=== PATIENT | male | born 1975 | race Caucasian/White ===

== ENCOUNTER 2017-09-07 10:57 | Outpatient (CLI) | payer OTHER | END 2017-09-07 10:58 | disposition home or self-care (01) | LOC: SC 10:57 | PROVIDERS: ATTEND Internal Medicine Pulmonary Disease | DX: G47.10 Hypersomnia, unspecified (principal); G47.8 Other sleep disorders; R06.83 Snoring; R09.89 Other specified symptoms and signs involving the circulatory and respiratory systems | CPT/HCPCS: 99203; 99212 ==

== ENCOUNTER 2017-11-11 21:59 | Outpatient (CLI) | payer OTHER | END 2017-11-11 22:00 | disposition home or self-care (01) | LOC: SC 21:59 | PROVIDERS: ATTEND Internal Medicine Pulmonary Disease | DX: G47.33 Obstructive sleep apnea (adult) (pediatric) (principal); R00.1 Bradycardia, unspecified | CPT/HCPCS: 95810 ==

== ENCOUNTER 2017-12-14 09:54 | Outpatient (CLI) | payer OTHER | END 2017-12-14 09:55 | disposition home or self-care (01) | LOC: SC 09:54 | PROVIDERS: ATTEND Internal Medicine Pulmonary Disease | DX: G47.33 Obstructive sleep apnea (adult) (pediatric) (principal) | CPT/HCPCS: 99212; 99213 ==

== ENCOUNTER 2018-01-17 20:32 | Outpatient (CLI) | payer OTHER | END 2018-01-17 20:33 | disposition home or self-care (01) | LOC: SC 20:32 | PROVIDERS: ATTEND Internal Medicine Pulmonary Disease | DX: G47.33 Obstructive sleep apnea (adult) (pediatric) (principal); G47.61 Periodic limb movement disorder | CPT/HCPCS: 95811 ==

== ENCOUNTER 2018-02-11 15:20 | Outpatient (CLI) | payer OTHER | END 2018-02-11 15:21 | disposition home or self-care (01) | LOC: SC 15:20 | PROVIDERS: ATTEND Internal Medicine Pulmonary Disease | DX: G47.33 Obstructive sleep apnea (adult) (pediatric) (principal) | CPT/HCPCS: 99212; 99213 ==

== ENCOUNTER 2020-02-03 08:22 | Outpatient (CLI) | payer OTHER ==
--- NOTE | 2020-02-03 14:02 | MRI Report ---
PROCEDURE: Wrist RT W/O INDICATIONS: PAIN IN RIGHT WRIST TECHNIQUE: Noncontrast coronal proton density fast spin echo and T2 fast spin echo with fat saturation; coronal 3-D gradient echo, axial T1 spin echo and T2 fast spin echo with fat saturation, sagittal T1 spin ech o through the wrist. COMPARISON: None. FINDINGS: Image quality: There is mild motion artifact. Bones and cartilage: The carpal bones are normally aligned. No bone marrow contusions or fractures. No evidence for avascular necrosis. Overlying cartilage surfaces appear preserved. Carpal ligaments: The scapholunate ligament is attenuated in signal distally suggestive of mild part ial tearing. Lunotriquetral ligament demonstrates degenerative signal but appears grossly intact. In the absence of intra-articular contrast, the extrinsic carpal ligaments are not well identified. On sagittal images, the pisohamate ligament appears intact. Triangular fibrocartilage complex: The triangular fibrocartilage demonstrates mild degenerative sign al adjacent to its radial attachment. The adjacent meniscal also demonstrates mild degenerative signa l. The extensor carpi ulnaris tendon is normal in location and morphology. Tendons and soft tissues: The carpal tunnel structures appear normal, including the median nerve. T he ulnar nerve appears normal within Guyon?s canal. All six extensor tendon compartments demonstrate normal morphology, without pathologic tendon sheath fluid. There is a multiloculated ganglion cyst a long the volar aspect of the carpus adjacent to the junction of the trapezium and trapezoid and exten ding distally to the ulnar aspect of the first carpometacarpal joint. This measures approximately 2.4 cm in longitudinal dimension by approximately 0.7 x 0.4 cm. IMPRESSION: 1. Multiloculated ganglion cyst along the volar aspect of the carpus as described. 2. Suspected mild partial tearing of the dorsal component of the scapholunate ligament. Reviewed by: Mckinley Chavez MD on 02/03/2020 2:00 PM PDT Approved by: Mckinley Chavez MD on 02/03/2020 2:00 PM PDT Station ID: [id number]
== END 2020-02-03 08:23 | disposition home or self-care (01) ==
LOC: DI 08:22
PROVIDERS: ATTEND Nurse Practitioner Family
DX: M67.431 Ganglion, right wrist (principal)

== ENCOUNTER 2020-07-22 07:03 | Emergency (ER) | payer OTHER ==
--- NOTE | 2020-07-22 07:18 | ED Physician Documentation ---
PD HPI BACK PAIN - Stated complaint Stated Complaint: BACK/LEG PX - Chief complaint Chief Complaint: Back Pain - History obtained from History obtained from: Patient - History of Present Illness Timing - onset: How many days ago (4-5) Timing - duration: Days Timing - details: Gradual onset, Still present (more consistent the past day. No noted new injury. Had been doing usual activity and had worsening of back pain. Has had similar episodes in the past. Mild ongoing aching often, but severe episodes like current one are sporadic.), Waxing and waning Location: Lower, Left (radiating to left posterior thigh along hamstring area. No rash nor sores.) Quality: Pain, Sharp, Aching. No: Tearing Associated symptoms: No: Fever, Weakness, Numbness, Incontinent of urine Improves with: No: Rest, Meds (Rx Methocarbamol at ER in [place], where he was for work. Taking Ibuprofen intermittently with it.) Worsened by: Movement, Twisting, Palpation (left SI area) Contributing factors: Lifting Similar symptoms before: Diagnosis (recurrent low back pain. Had prior disc surgery 2013 and was good for several years. Occasional worse episodes lately.) Recently seen: Emergency Dept (4 days ago in [place] when it started getting worse.) Review of Systems Constitutional: denies: Fever, Chills Nose: denies: Rhinorrhea / runny nose, Congestion Throat: denies: Sore throat Cardiac: denies: Chest pain / pressure Respiratory: denies: Cough GI: denies: Abdominal Pain, Nausea, Vomiting Neurologic: reports: Numbness (he says sensation is decreased left posterior thi gh. No alteration around genitalia. Urinating okay.). denies: Focal weakness PD PAST MEDICAL HISTORY - Past Medical History Cardiovascular: None Respiratory: None Neuro: None Endocrine/Autoimmune: None Musculoskeletal: Chronic back pain (episodic) - Past Surgical History Past Surgical History: No - Present Medications Home Medications: Ambulatory Orders Medication Instructions Recorded Confirmed Dulaglutide [Trulicity] 0.75 mg SQ ONCE 07/22/20 07/22/20 Methocarbamol [Robaxin-750] 750 mg PO TID PRN 07/22/20 07/22/20 Oxycodone HCl/Acetaminophen 1 each PO Q4H PRN #20 tab 07/22/20 [Percocet 7.5-325 mg Tablet] Pantoprazole [Protonix] 40 mg PO DAILY 07/22/20 07/22/20 dexAMETHasone [Decadron] 4 mg PO DAILY #5 tab 07/22/20 metFORMIN [Glucophage] 500 mg PO BIDWM 07/22/20 07/22/20 tiZANidine [Zanaflex] 4 mg PO Q8H PRN #25 tab 07/22/20 - Allergies Allergies/Adverse Reactions: Allergies Allergy/AdvReac Type Severity Reaction Status Date / Time No Known Drug Allergies Allergy Verified 07/22/20 07:12 - Social History Does the pt smoke?: No Smoking Status: Never smoker Does the pt drink ETOH?: Yes Does the pt have substance abuse?: No - Immunizations Immunizations are current?: Yes PD ED PE NORMAL - Vitals Vital signs reviewed: Yes - General General: Alert and oriented X 3, Well developed/nourished, Other (appears in pain. Lying left side with knees up as most comfortable. ) - Respiratory Respiratory: Clear bilaterally - Abdomen Abdomen: Soft, Non tender - Male Male : Deferred - Rectal Rectal: Deferred, Other (normal sensation in gluteals and perirectal. ) - Back Back: No CVA TTP, No spinal TTP (not tender midline, but has focal tender area left SI area. No rash nor sores. ) - Derm Derm: Normal color, Warm and dry - Neuro Neuro: Alert and oriented X 3, No motor deficit, Normal speech, Other (decreased sensation left posterior thigh and lateral lower left leg. ) Eye Opening: Spontaneous Motor: Obeys Commands Verbal: Oriented GCS Score: 15 - Psych Psych: Normal mood Results - Vitals Vitals: Vital Signs - 24 hr 07/22/20 07/22/20 07:09 08:12 Temperature 36.0 C L Heart Rate 86 94 Respiratory 20 16 Rate Blood Pressure 156/92 H 131/80 H O2 Saturation 97 100 Oxygen O2 Source Room air PD MEDICAL DECISION MAKING - ED course Complexity details: re-evaluated patient (Feeling fairly well improved for now with IM meds and also local trigger point injection at upper left SI muscle area. ), considered differential (recurrent low back pain with some sciatic symptoms, otherwise no red flags. ), d/w patient Departure - Departure Disposition: 01 Home, Self Care Clinical Impression: Sacro-iliac pain Low back pain Qualifiers: Chronicity: acute Back pain laterality: left Sciatica presence: with sciatica Sciatica laterality: sciatica of left side Qualified Code(s): M54.42 - Lumbago with sciatica, left side Condition: Stable Record reviewed to determine appropriate education?: Yes Instructions: ED Sacroiliitis, ED Sciatica Follow-Up: CHERYL ARAYA MD [Primary Care Provider] - Prescriptions: dexAMETHasone [Decadron] 4 mg PO DAILY #5 tab Oxycodone HCl/Acetaminophen [Percocet 7.5-325 mg Tablet] 1 each PO Q4H PRN #20 tab PRN Reason: Pain tiZANidine [Zanaflex] 4 mg PO Q8H PRN #25 tab PRN Reason: Spasms Comments: Heat and gentle stretching for the low back area to reduce spasming. Range of motion and stretching exercises targeted not only at the low back but also the sacroiliac joint and muscles. Contact your primary care regarding physical therapy to help with this as well. Chiropractic and massage are also good modalities for this type of problem. Use the Decadron steroid anti-inflammatory and tizanidine muscle relaxant regularly. To that add ibuprofen or naproxen twice daily for pain and Tylenol or oxycodone as needed for worse pain. Follow-up with your primary care in the next several days, call for an appointment.
[2020-07-22] MEDS ORDERED: KETOROLAC 30 MG/ML VIAL IM STA (07:38)
[2020-07-22] MEDS ORDERED: HYDROmorphone 2 MG/ML VIAL IM STA (07:38)
[2020-07-22] MEDS ORDERED: CHERRY SYRUP 10 ML UDC PO ONE (07:41)
[2020-07-22] MEDS ORDERED: DEXAMETHASONE 10 MG/ML VIAL PO STA (07:41)
[2020-07-22] MEDS ORDERED: TRIAMCINOLONE 40 MG/ML VIAL IM STA (07:41)
[2020-07-22] MEDS ORDERED: CYCLOBENZAPRINE 10 MG TABLET PO STA (07:42)
[2020-07-22 09:10] VITALS: BP 124/68
== END 2020-07-22 09:10 | disposition home or self-care (01) ==
LOC: ED 07:03
DX: M53.3 Sacrococcygeal disorders, not elsewhere classified (principal); M54.42 Lumbago with sciatica, left side
CPT/HCPCS: 20552; 96374; 99283; 99284; A9270; J1170

== ENCOUNTER 2020-10-04 13:01 | Emergency (ER) | payer OTHER ==
--- OUTSIDE RECORDS SUMMARY | 2020-10-04 13:05 | EXTERNAL MEDICAL SUMMARY RPT | Continuity of Care Document ---
:1975 Demographics Phone Unavailable Preferred Language Unknown Marital Status Unknown Taoist Affiliation Unknown Race Unknown Ethnic Group Unknown Author Organization [facility] Address [address] [place] [address] Phone Social History date description facility [phone]
--- OUTSIDE RECORDS SUMMARY | 2020-10-04 13:07 | EXTERNAL MEDICAL SUMMARY RPT | Continuity of Care Document ---
:1975 Demographics Phone Unavailable Preferred Language Unknown Marital Status Unknown Religion Affiliation Unknown Race Unknown Ethnic Group Unknown Author Organization [facility] Address [address] [place] [address] Phone Social History date description facility [phone]
[2020-10-04] MEDS ORDERED: HYDROmorphone 1 MG/ML CARPUJECT IM STA ×2 (14:35→15:28)
[2020-10-04] MEDS ORDERED: predniSONE 20 MG TABLET PO STA (14:45)
--- NOTE | 2020-10-04 14:45 | ED Physician Documentation ---
History of Present Illness - Stated complaint Stated Complaint: LFT LEG PX - Chief complaint Chief Complaint: Back Pain - Additonal information Additional information: 45-year-old male presents emergency department with acute on chronic low back pain. Reports a longstanding history of sciatica with associated paresthesia in the left leg. He is attended by [facility] pain medicine doctor. He is taking 1200 mg of gabapentin daily. However despite this he has had worsening pain. He reports that the next step for them was to attempt steroid injections. He denies any fevers recent falls loss of bowel or bladder function or saddle anesthesia. Review of Systems Constitutional: denies: Fever, Chills Eyes: reports: Reviewed and negative Ears: reports: Reviewed and negative Nose: reports: Reviewed and negative Throat: reports: Reviewed and negative Cardiac: reports: Reviewed and negative Respiratory: reports: Reviewed and negative GI: reports: Reviewed and negative : denies: Dysuria, Frequency, Hesitancy Skin: denies: Rash, Lesions Musculoskeletal: reports: Back pain, Extremity pain Neurologic: reports: Reviewed and negative PD PAST MEDICAL HISTORY - Past Medical History Cardiovascular: None Respiratory: None Neuro: None Endocrine/Autoimmune: None GI: GERD : None HEENT: None Psych: None Musculoskeletal: Chronic back pain (episodic) Derm: None - Past Surgical History Past Surgical History: No Ortho: Spine surgery - Present Medications Home Medications: Ambulatory Orders Medication Instructions Recorded Confirmed Dulaglutide [Trulicity] 0.75 mg SQ ONCE 07/22/20 07/22/20 Methocarbamol [Robaxin-750] 750 mg PO TID PRN 07/22/20 07/22/20 Oxycodone HCl/Acetaminophen 1 each PO Q4H PRN #20 tab 07/22/20 [Percocet 7.5-325 mg Tablet] Pantoprazole [Protonix] 40 mg PO DAILY 07/22/20 07/22/20 dexAMETHasone [Decadron] 4 mg PO DAILY #5 tab 07/22/20 metFORMIN [Glucophage] 500 mg PO BIDWM 07/22/20 07/22/20 tiZANidine [Zanaflex] 4 mg PO Q8H PRN #25 tab 07/22/20 predniSONE [Deltasone] 40 mg PO DAILY 5 Days #10 tablet 10/04/20 - Allergies Allergies/Adverse Reactions: Allergies Allergy/AdvReac Type Severity Reaction Status Date / Time No Known Drug Allergies Allergy Verified 10/04/20 13:14 - Social History Does the pt smoke?: No Smoking Status: Never smoker Does the pt drink ETOH?: Yes Does the pt have substance abuse?: No - Immunizations Immunizations are current?: Yes PD ED PE EXPANDED - General General: Alert, In Pain - Cardiac Cardiac: Tachy, Radial strong equal, Pedal strong equal, Cap refill < 2 sec - Respiratory Respiratory: Clear to ausultation lebron. No: Distress, Labored - Abdomen Abdomen: Normal Bowel sounds. No: Tender to palpation - Back Back: Soft tissue tenderness, Limited ROM, Straight leg raise + L, Other (Well- healed scar at the level of L4-L5. Mild tenderness across the lower paraspinous lumbar muscles. Focal tenderness at the left SI joint. Positive straight leg exam left leg. Patient with antalgic gait. Motor strength 4 5 left leg 5 of 5 right leg.). No: Normal exam, Normal ROM, Vertebral tenderness, Straight leg raise + R, CVA TTP right, CVA TTP left - Extremities Extremities: Normal, Tenderness (Some tenderness extending from the left SI joint down the left anterior thigh. Associated paresthesia of the lateral left leg to the ankle.), Pedal Pulses Present. No: Deformity, Right calf TTP/cord, Left calf TTP/cord Results - Vitals Vitals: Vital Signs - 24 hr 10/04/20 13:14 Temperature 36.5 C Heart Rate 76 Respiratory 16 Rate Blood Pressure 137/89 H O2 Saturation 98 Oxygen O2 Source Room air PD MEDICAL DECISION MAKING - ED course Complexity details: reviewed results, re-evaluated patient, d/w patient ED course: 45-year-old male presents emergency department with acute on chronic worsening low back pain and sciatica. Currently on gabapentin daily. This flare began a few days ago. Here in the emergency department he has no red flags such as saddle anesthesia fevers bowel or bladder incontinence. He was given 1 mg of Dilaudid with marked improvement in symptoms. I will plan to start him on a 5- day course of oral steroids. Patient is scheduled to see his pain management doctor on Thursday. Discharge home with appropriate return precautions discussed Departure - Departure Disposition: Home, Self Care Clinical Impression: Sciatica Qualifiers: Laterality: left Qualified Code(s): M54.32 - Sciatica, left side Condition: Stable Record reviewed to determine appropriate education?: Yes Instructions: ED Sciatica Follow-Up: CHERYL ARAYA MD [Primary Care Provider] - Prescriptions: predniSONE [Deltasone] 40 mg PO DAILY 5 Days #10 tablet Comments: Edward you are seen in the emergency department today for low back pain and sciatica. You were given an injection of Dilaudid which improved your symptoms however as we discussed I feel that you would do well with a short course of oral steroids. Your first dose was given today in the emergency department. Please fill the prescription for the prednisone and begin taking tomorrow as directed. Do not miss a follow-up appointment with your pain management doctor on Thursday. Return to the emergency department if you develop fevers, have loss of control of bowel or bladder function or numbness in your genital area.
[2020-10-04 15:37] VITALS: BP 122/84
== END 2020-10-04 15:42 | disposition home or self-care (01) ==
LOC: ED 13:01
DX: M54.32 Sciatica, left side (principal)
CPT/HCPCS: 96372; 99283; 99284; J1170; J7512

== ENCOUNTER 2020-10-07 16:21 | Emergency (ER) | payer OTHER ==
--- OUTSIDE RECORDS SUMMARY | 2020-10-07 16:25 | EXTERNAL MEDICAL SUMMARY RPT | Continuity of Care Document ---
:1975 Demographics Phone Unavailable Preferred Language Unknown Marital Status Unknown Confucianism Affiliation Unknown Race Unknown Ethnic Group Unknown Author Organization [facility] Address [address] [place] [address] Phone Social History date description facility [phone]
--- OUTSIDE RECORDS SUMMARY | 2020-10-07 16:28 | EXTERNAL MEDICAL SUMMARY RPT | Continuity of Care Document ---
:1975 Demographics Phone Unavailable Preferred Language Unknown Marital Status Unknown Restoration Affiliation Unknown Race Unknown Ethnic Group Unknown Author Organization [facility] Address [address] [place] [address] Phone Social History date description facility [phone]
[2020-10-07] MEDS ORDERED: HYDROmorphone 1 MG/ML CARPUJECT IM STA (16:37)
[2020-10-07] MEDS ORDERED: KETOROLAC 60 MG/2 ML VIAL IM STA (16:37)
--- NOTE | 2020-10-07 16:39 | ED Physician Documentation ---
History of Present Illness - Stated complaint Stated Complaint: HIP PX - Chief complaint Chief Complaint: Ext Problem - History obtained from History obtained from: Patient - Additonal information Additional information: 45-year-old gentleman, active duty in the [employer] has had a long history of back problems. Had a surgery at [facility] in 2013, but was doing well after that until July of this year. He presents with severe pain of the left buttock radiating into the upper left hamstring. Is hard for him to get comfortable. There is chronic numbness of the left leg which he says is not new. He denies saddle anesthesia, IV drug use, fevers. He was seen here in July and got a steroid shot which she says was helpful, and is now on gabapentin at a dose of 400 mg 3 times a day. He was seen here a few days ago and got some relief with the Dilaudid shot and steroids but it is much worse over the last few hours. Review of Systems Constitutional: denies: Fever, Chills Throat: denies: Dental pain / toothache, Sore throat Cardiac: denies: Chest pain / pressure, Palpitations Respiratory: denies: Dyspnea, Cough PD PAST MEDICAL HISTORY - Past Medical History Past Medical History: Yes Cardiovascular: None Respiratory: None Neuro: None Endocrine/Autoimmune: None GI: GERD : None HEENT: None Psych: None Musculoskeletal: Chronic back pain Derm: None - Past Surgical History Past Surgical History: No Ortho: Spine surgery - Present Medications Home Medications: Ambulatory Orders Medication Instructions Recorded Confirmed Dulaglutide [Trulicity] 0.75 mg SQ ONCE 07/22/20 07/22/20 Methocarbamol [Robaxin-750] 750 mg PO TID PRN 07/22/20 07/22/20 Oxycodone HCl/Acetaminophen 1 each PO Q4H PRN #20 tab 07/22/20 [Percocet 7.5-325 mg Tablet] Pantoprazole [Protonix] 40 mg PO DAILY 07/22/20 07/22/20 dexAMETHasone [Decadron] 4 mg PO DAILY #5 tab 07/22/20 metFORMIN [Glucophage] 500 mg PO BIDWM 07/22/20 07/22/20 tiZANidine [Zanaflex] 4 mg PO Q8H PRN #25 tab 07/22/20 predniSONE [Deltasone] 40 mg PO DAILY 5 Days #10 tablet 10/04/20 Oxycodone HCl/Acetaminophen 1 - 2 each PO Q6H PRN #14 tablet 10/07/20 [Percocet 5-325 mg Tablet] - Allergies Allergies/Adverse Reactions: Allergies Allergy/AdvReac Type Severity Reaction Status Date / Time No Known Drug Allergies Allergy Verified 10/07/20 16:28 - Social History Does the pt smoke?: No Smoking Status: Never smoker Does the pt drink ETOH?: Yes Does the pt have substance abuse?: No - Immunizations Immunizations are current?: Yes - POLST Patient has POLST: No PD ED PE NORMAL - Vitals Vital signs reviewed: Yes - General General: Alert and oriented X 3, Other (Appears uncomfortable, he is leaning on his right side on the bed. Bearing most of his weight on the right leg.) - Back Back: No spinal TTP - Derm Derm: Normal color, Warm and dry - Extremities Extremities: Other (Numbness in the left lower leg, both sides, not the thigh. Unable to check reflexes due to his positioning. Gait is normal but labored due to pain.) - Neuro Neuro: Alert and oriented X 3, Normal speech Results - Vitals Vitals: Vital Signs - 24 hr 10/07/20 16:26 Temperature 36.3 C L Heart Rate 92 Respiratory 19 Rate Blood Pressure 154/79 H O2 Saturation 99 Oxygen O2 Source Room air - Rads (name of study) L hip xr Radiology: EMP read contemporaneously (Moderate degenerative changes of the hips with prominence of the femoral neck junctions, correlate for impingement.) Procedures - General procedure General procedure: Trigger point injection was done in 2 spots in the Left buttock and left hip using 4 mL of 0.5% ropivacaine with 40 mg of triamcinolone PD MEDICAL DECISION MAKING - ED course ED course: 45-year-old gentleman presents with hip pain which could be referred back pain but some elements of the history and physical is more consistent with hip pathology and an x-ray was done showing concern for hip impingement syndrome. Regardless he was feeling much better after medications and trigger point injection for. Departure - Departure Disposition: 01 Home, Self Care Clinical Impression: Sciatica Qualifiers: Laterality: left Qualified Code(s): M54.32 - Sciatica, left side Hip impingement syndrome Qualifiers: Laterality: left Qualified Code(s): M25.852 - Other specified joint disorders, left hip Condition: Good Record reviewed to determine appropriate education?: Yes Instructions: ED Sciatica, Femoroacetabular Impingement Prescriptions: Oxycodone HCl/Acetaminophen [Percocet 5-325 mg Tablet] 1 - 2 each PO Q6H PRN #14 tablet PRN Reason: pain Comments: As discussed, x-ray demonstrates findings of of prominence of the femoral/head neck junctions which could be consistent with impingement syndrome. [place] and discuss referral to orthopedics for options on that. Continue current gabapentin and add medications given here. Return for new or worsening symptoms or if pain is uncontrolled.
[2020-10-07] MEDS ORDERED: TRIAMCINOLONE 40 MG/ML VIAL IM STA (16:40)
[2020-10-07] MEDS ORDERED: ROPIVACAINE 0.5% PF 20 ML AMPULE SUBQ STA (16:40)
--- NOTE | 2020-10-07 17:03 | XRAY Report ---
PROCEDURE: Hip w/Pelvis 2-3V LT INDICATIONS: hip pain TECHNIQUE: 2 views of the pelvis along with frog-leg lateral view of the left hip. COMPARISON: None. FINDINGS: Bones: There is no fracture. Pelvic ring is intact. There is mild to moderate degenerative changes of the hips. There is prominence of the femoral head neck junctions bilaterally. Fat planes around the hip are maintained. Soft tissues: The visualized bowel gas pattern is normal. No suspicious soft tissue calcifications. IMPRESSION: No acute osseous abnormality. Mild to moderate degenerative changes of the hips with prominence of the femoral head neck junctions. Recommend correlation for impingement. Reviewed by: Jd Fleming DO on 10/07/2020 4:01 PM EDITH Approved by: Jd Fleming DO on 10/07/2020 4:01 PM EDITH Station ID: [id number]
[2020-10-07] MEDS ORDERED: oxyCODONE/ACET 5/325 Prepack 4 PO STA (17:41)
[2020-10-07 17:46] VITALS: BP 134/67
== END 2020-10-07 17:56 | disposition home or self-care (01) ==
LOC: ED 16:21
DX: M54.32 Sciatica, left side (principal); M25.852 Other specified joint disorders, left hip
CPT/HCPCS: 20552; 73502; 96372; 99283; J1170

== ENCOUNTER 2020-10-09 17:19 | Emergency (ER) | payer OTHER ==
[2020-10-09] MEDS ORDERED: SODIUM CHLORIDE 0.9% 1,000 ML IV STA ×2 (17:43→19:14)
[2020-10-09] MEDS ORDERED: KETOROLAC 30 MG/ML VIAL IVP STA (17:43)
[2020-10-09] MEDS ORDERED: DEXAMETHASONE 10 MG/ML VIAL IVP STA (17:44)
[2020-10-09] MEDS ORDERED: HYDROmorphone 1 MG/ML CARPUJECT IVP STA (17:44)
[2020-10-09] MEDS ORDERED: NALBUPHINE 10 MG/ML AMP IVP STA (18:18)
--- NOTE | 2020-10-09 18:21 | ED Physician Documentation ---
PD HPI BACK PAIN - Stated complaint Stated Complaint: LT LEG & BACK PX - Chief complaint Chief Complaint: Back Pain - History obtained from History obtained from: Patient - History of Present Illness Timing - onset: How many months ago (3) Timing - duration: Months (3) Pain level max: 10 Pain level now: 10 Location: Lower, Left Quality: Pain, Spasm, Sharp, Similar to prior episodes Associated symptoms: No: Fever, Weakness, Numbness, Incontinent of urine, Unable to urinate, Hematuria, Incontinent of stool Contributing factors: No: Lifting, Twisting, Trauma, Anticoagulated, Cancer, IVDA - Additional information Additional information: 45-year-old male who presents to the emergency department with left lower back and hip pain. This been ongoing for the past 3 months. Has been seen here several times in the past week. Saw his pain specialist yesterday. Has ongoing pain today. States it worsened tonight. Rates the pain was a 10 out of 10. Nothing makes it better. Worse with movement. No loss of bowel or bladder control. Does not use IV drugs no trauma. No cancer. States has bulging disks on a recent MRI. Review of Systems Ten Systems: 10 systems reviewed and negative Constitutional: denies: Fever, Chills Nose: denies: Rhinorrhea / runny nose, Congestion Respiratory: denies: Dyspnea, Cough, Wheezing GI: denies: Nausea, Vomiting, Diarrhea Skin: denies: Rash Musculoskeletal: denies: Neck pain, Back pain Neurologic: denies: Headache PD PAST MEDICAL HISTORY - Past Medical History Past Medical History: No Cardiovascular: None Respiratory: None Neuro: None Endocrine/Autoimmune: None GI: GERD : None HEENT: None Psych: None Musculoskeletal: Chronic back pain Derm: None - Past Surgical History Past Surgical History: No Ortho: Spine surgery - Present Medications Home Medications: Ambulatory Orders Medication Instructions Recorded Confirmed Dulaglutide [Trulicity] 0.75 mg SQ ONCE 07/22/20 07/22/20 Methocarbamol [Robaxin-750] 750 mg PO TID PRN 07/22/20 07/22/20 Oxycodone HCl/Acetaminophen 1 each PO Q4H PRN #20 tab 07/22/20 [Percocet 7.5-325 mg Tablet] Pantoprazole [Protonix] 40 mg PO DAILY 07/22/20 07/22/20 dexAMETHasone [Decadron] 4 mg PO DAILY #5 tab 07/22/20 metFORMIN [Glucophage] 500 mg PO BIDWM 07/22/20 07/22/20 tiZANidine [Zanaflex] 4 mg PO Q8H PRN #25 tab 07/22/20 predniSONE [Deltasone] 40 mg PO DAILY 5 Days #10 tablet 10/04/20 Oxycodone HCl/Acetaminophen 1 - 2 each PO Q6H PRN #14 tablet 10/07/20 [Percocet 5-325 mg Tablet] Meloxicam [Mobic] 7.5 mg PO BID PRN #20 tablet 10/09/20 Oxycodone HCl/Acetaminophen 1 - 2 each PO Q6H PRN #14 tablet 10/09/20 [Percocet 5-325 mg Tablet] methocarbamoL [Robaxin] 500 mg PO Q6H PRN #20 tablet 10/09/20 - Allergies Allergies/Adverse Reactions: Allergies Allergy/AdvReac Type Severity Reaction Status Date / Time No Known Drug Allergies Allergy Verified 10/09/20 17:34 - Social History Does the pt smoke?: No Smoking Status: Never smoker Does the pt drink ETOH?: Yes Does the pt have substance abuse?: No - Immunizations Immunizations are current?: Yes - POLST Patient has POLST: No PD ED PE NORMAL - Vitals Vital signs reviewed: Yes - General General: Alert and oriented X 3, No acute distress - HEENT HEENT: Moist mucous membranes - Neck Neck: Supple, no meningeal sign - Cardiac Cardiac: RRR, Strong equal pulses - Respiratory Respiratory: No respiratory distress, Clear bilaterally - Abdomen Abdomen: Soft, Non tender, Non distended - Back Back: No spinal TTP, Other (No step-off or deformity.) - Derm Derm: Warm and dry - Extremities Extremities: No edema - Neuro Neuro: Alert and oriented X 3, No motor deficit, No sensory deficit, Other (Normal bilateral lower extremity patellar and ankle jerk reflexes. Normal great toe extension bilaterally. no saddle anesthesia) Results - Vitals Vitals: Vital Signs - 24 hr 10/09/20 10/09/20 10/09/20 17:30 20:05 20:18 Temperature 36.6 C 36.6 C 36.6 C Heart Rate 92 81 81 Respiratory 20 18 16 Rate Blood Pressure 157/110 H 132/72 H 132/72 H O2 Saturation 98 99 99 Oxygen O2 Source Room air PD MEDICAL DECISION MAKING - ED course Complexity details: reviewed old records, reviewed results, re-evaluated patient, considered differential (No cauda equina, no spinal epidural abscess, no fracture, no aortic dissection or evidence of aneursym rupture), d/w patient ED course: 45-year-old male with what appears to be ongoing sciatica. Given Toradol, Decadron, Dilaudid and Nubain here. Feels much better. He states he feels like his leg is spasming so Robaxin was given as well. Pain well controlled. We will trial him on crutches to see if this helps his symptoms. No evidence of cauda equina, epidural abscess. Recommend that he contact his pain management doctor tomorrow for ongoing pain medication needs. He has a referral in for a health care law specialist. Patient counseled regarding signs and symptoms for which I believe and urgent re-evaluation would be necessary. Patient with good understanding of and agreement to plan and is comfortable going home at this time This document was made in part using voice recognition software. While efforts are made to proofread this document, sound alike and grammatical errors may occur. Departure - Departure Disposition: Home, Self Care Clinical Impression: Sciatica Qualifiers: Laterality: left Qualified Code(s): M54.32 - Sciatica, left side Condition: Good Instructions: ED Sciatica Follow-Up: CHERYL ARAYA MD [Primary Care Provider] - Within 3 Days Prescriptions: Meloxicam [Mobic] 7.5 mg PO BID PRN #20 tablet PRN Reason: Pain Oxycodone HCl/Acetaminophen [Percocet 5-325 mg Tablet] 1 - 2 each PO Q6H PRN #14 tablet PRN Reason: pain methocarbamoL [Robaxin] 500 mg PO Q6H PRN #20 tablet PRN Reason: muscle spasm Comments: Follow-up with your doctor for further care. Return if you worsen. We will see if the crutches help to alleviate your symptoms. Your pain doctor should be able to prescribe you pain management medications at home. I would contact them tomorrow to let them know your symptoms increased. Do not drink alcohol or drive while on narcotic pain medicine. Note that many narcotic pain relievers also contain tylenol/acetaminophen. Please ensure that your total dose of acetaminophen from all sources does not exceed 3 grams (3000mg) per day. You may constipated on this medication, take a stool softener such as "Colace" twice a day while you are on it. Also recommend a [id number] laxative such as senna or MiraLAX any day that you do not have a bowel movement. If you received narcotic pain medication in the emergency department, do not drive or operate machinery for the next 24 hours. Discharge Date/Time: 10/09/20 20:18
[2020-10-09] MEDS ORDERED: methocarbamoL 500 MG TABLET PO STA (19:13)
[2020-10-09] MEDS ORDERED: oxyCODONE 5 MG TABLET PO STA (19:59)
[2020-10-09 20:06] VITALS: BP 132/72
== END 2020-10-09 20:18 | disposition home or self-care (01) ==
LOC: ED 17:19
DX: M54.32 Sciatica, left side (principal)
CPT/HCPCS: 96374; 96375; 99284; 99285; A9270; J1170; J2300